=== PATIENT | male | born 1950 | race American Indian/Alaskan Native ===

== ENCOUNTER 2018-11-29 10:14 | Day surgery (SDC) | payer BC, MEDICARE ==
[~2018-11-29 10:14] MED LIST: NACL 0.9% 1000 ML 1,000 ML IV SCH
[2018-11-29 11:13] VITALS: BP 120/72
--- NOTE | 2018-11-29 15:01 | Consultation ---
History of Present Illness Consult date: 11/29/18 Consult reason: pre op evaluation History of present illness: 68y M with history of NICM, chronic AF and insitu AICD. Patient of [facility] with chronic stable routine ME follow up. Referred for cardiology pre-op for routine GI endoscopy. He has no chest pain or SOB or palpitations. No edema. On telemetry he is atrial fib with good rate control. He is on Xarelto which was held 4 days ago in prep for this procedure. Past History Past Medical History: atrial fib, heart failure, hypertension Past Surgical History: Other (ICD implant) Medications and Allergies Allergies Allergy/AdvReac Type Severity Reaction Status Date / Time No Known Allergies Allergy Verified 07/07/14 05:06 Home Medications Medication Instructions Recorded Confirmed Last Taken Type Potassium Chloride 10 meq PO QDAY #30 capsule.er 07/09/14 11/28/18 Unknown Rx Acetaminophen 500 mg PO BID 11/28/18 11/29/18 11/28/18 History Atorvastatin 80 mg PO DAILY 11/28/18 11/29/18 11/28/18 History Coenzyme Q10 1 tab PO DAILY 11/28/18 11/29/18 11/28/18 History Eplerenone 50 mg PO DAILY 11/28/18 11/29/18 11/28/18 History Fish Oil 1,000 mg PO DAILY 11/28/18 11/29/18 11/28/18 History Fluticasone Propionate 1 spray INNOSTRIL DAILY 11/28/18 11/29/18 11/28/18 History Folic Acid 1 mg PO DAILY 11/28/18 11/29/18 11/28/18 History Insulin Glargine 100 units SUB-Q DAILY 11/28/18 11/29/18 11/28/18 History Lantus Solostar 30 units SUB-Q DAILY 11/28/18 11/29/18 11/28/18 History Metoprolol 200 mg PO DAILY 11/28/18 11/29/18 11/28/18 History [place] 3 500 Softgel 1,000 mg PO DAILY 11/28/18 11/29/18 11/28/18 History Torsemide 20 mg PO DAILY 11/28/18 11/29/18 11/28/18 History Xarelto 15 mg PO DAILY 04/03/19 04/04/19 04/01/19 History Active Meds: Active Medications Sodium Chloride (Nacl 0.9% 1000 Ml) 1,000 mls @ 50 mls/hr IV DIRECT MARIANN Last Admin: 11/29/18 11:25 Dose: 50 mls/hr Documented by: Review of Systems Cardiovascular: no chest pain, no orthopnea, no palpitations, no rapid/irregular heart beat, no edema, no syncope, no lightheadedness, no shortness of breath Physical Examination Vital Signs Temp Pulse Resp BP Pulse Ox 98.3 F 99 H 13 120/72 100 11/29/18 11:11 11/29/18 11:11 11/29/18 11:11 11/29/18 11:11 11/29/18 11:11 General appearance: no acute distress HEENT: Positive: PERRL Neck: Positive: neck supple Cardiac: Positive: irregularly irregular Lungs: Positive: clear to auscultation Neuro: Positive: Grossly Intact Abdomen: Positive: Soft Male genitourinary: Positive: deferred Skin: Positive: Clear Extremities: Absent: edema EKG interpretations - Telemetry EKG Rhythm: Atrial Fibrillation Assessment and Plan - Patient Problems (1) Pre-op evaluation Current Visit: Yes Status: Acute Plan to address problem: OK for procedure, low cardiac risk.
--- NOTE | 2018-11-29 18:21 | History and Physical Report ---
History of Present Illness Date of examination: 11/29/18 Date of admission: 11/29/2018 Chief complaint: History of colon polyps. History of present illness: Patient is a 68-year-old male referred for evaluation with a colonoscopy because of personal history of colon polyps. Patient has a history of atrial fibrillation and congestive heart failure hypertension and has an automated implantable cardioverter defibrillator . Patient is on anticoagulation with Xarelto which was stopped 4 days ago in preparation for this procedure. Patient has cardiomyopathy reportedly with an ejection fraction of 25%. According to him he had a electrocardiogram previously at the [facility] and had a recent echocardiogram had done [facility]. He was felt at a time to be an appropriate candidate for colonoscopy. Patient on presentation today was also evaluated by anesthesiology who felt that patient needed cardiac clearance. He was seen by cardiology who cleared patient for colonoscopy. Patient had an otherwise uneventful hospital stay for his colonoscopy. He however appeared to become concerned about the necessity for cardiac clearance and declined colonoscopy, after he was cleared by cardiology. He stated that he will do colonoscopy at an alternate time after seeing his own personal inspectors and regulatory officers. Patient was evaluated by cardiology in the hospital here and also by anesthesiologist who initially had insisted on getting an echocardiogram report but had agreed for patient to have a colonoscopy after discussions with the inspectors and regulatory officers. Patient's hospital course otherwise was uneventful. Past History Past Medical History: atrial fib, heart failure, hypertension, other (history of cardiomyopathy with ejection fraction reportedly of 25%.) Past Surgical History: Other (ICD implant) Medications and Allergies Allergies Allergy/AdvReac Type Severity Reaction Status Date / Time No Known Allergies Allergy Verified 07/07/14 05:06 Home Medications Medication Instructions Recorded Confirmed Last Taken Type Potassium Chloride 10 meq PO QDAY #30 capsule.er 07/09/14 11/28/18 Unknown Rx Acetaminophen 500 mg PO BID 11/28/18 11/29/18 11/28/18 History Atorvastatin 80 mg PO DAILY 11/28/18 11/29/18 11/28/18 History Coenzyme Q10 1 tab PO DAILY 11/28/18 11/29/18 11/28/18 History Eplerenone 50 mg PO DAILY 11/28/18 11/29/18 11/28/18 History Fish Oil 1,000 mg PO DAILY 11/28/18 11/29/18 11/28/18 History Fluticasone Propionate 1 spray INNOSTRIL DAILY 11/28/18 11/29/18 11/28/18 History Folic Acid 1 mg PO DAILY 11/28/18 11/29/18 11/28/18 History Insulin Glargine 100 units SUB-Q DAILY 11/28/18 11/29/18 11/28/18 History Lantus Solostar 30 units SUB-Q DAILY 11/28/18 11/29/18 11/28/18 History Metoprolol 200 mg PO DAILY 11/28/18 11/29/18 11/28/18 History [place] 3 500 Softgel 1,000 mg PO DAILY 11/28/18 11/29/18 11/28/18 History Torsemide 20 mg PO DAILY 11/28/18 11/29/18 11/28/18 History Xarelto 15 mg PO DAILY 11/28/18 11/29/18 11/26/18 History Active Meds: Active Medications Sodium Chloride (Nacl 0.9% 1000 Ml) 1,000 mls @ 50 mls/hr IV DIRECT MARIANN Last Admin: 11/29/18 11:25 Dose: 50 mls/hr Documented by: Review of Systems All systems: negative Exam - Constitutional Vitals: Temp Pulse Resp BP Pulse Ox 98.3 F 99 H 13 120/72 100 11/29/18 11:20 11/29/18 11:20 11/29/18 11:20 11/29/18 11:20 11/29/18 11:20 General appearance: Present: no acute distress, well-nourished - EENT Eyes: Present: PERRL ENT: hearing intact, clear oral mucosa - Neck Neck: Present: supple, normal ROM - Respiratory Respiratory effort: normal Respiratory: bilateral: CTA - Cardiovascular Heart Sounds: Present: S1 & S2. Absent: rub, click - Extremities Extremities: pulses symmetrical, No edema Peripheral Pulses: within normal limits - Abdominal General gastrointestinal: Present: soft, non-tender, non-distended, normal bowel sounds Male genitourinary: Present: normal - Integumentary Integumentary: Present: clear, warm, dry - Musculoskeletal Musculoskeletal: gait normal, strength equal bilaterally - Psychiatric Psychiatric: appropriate mood/affect, intact judgment & insight - Neurologic Neurologic: CNII-XII intact, moves all extremities Assessment and Plan Personal history of colon polyps. History of atrial fibrillation History of cardiomyopathy History of congestive heart failure History of automated implantable cardioverter defibrillator. Plan: Patient was to have a colonoscopy however after evaluation with cardiology and after he was cleared by cardiology and also by anesthesiology he decided that he was going to defer his colonoscopy at this time until he sees his own personal inspectors and regulatory officers. Patient was advised to initiate treatment with Xarelto immediately since he was not going to have the procedure done. Patient was instructed to follow up immediately with his primary care physician and also his inspectors and regulatory officers.
== END 2018-11-29 10:15 | disposition home or self-care (01) ==
LOC: GIO 10:14
PROVIDERS: ATTEND Internal Medicine Gastroenterology
DX: Z12.11 Encounter for screening for malignant neoplasm of colon (principal); I11.0 Hypertensive heart disease with heart failure; I50.23 Acute on chronic systolic (congestive) heart failure; I25.10 Atherosclerotic heart disease of native coronary artery without angina pectoris; J44.9 Chronic obstructive pulmonary disease, unspecified; E11.9 Type 2 diabetes mellitus without complications; I42.9 Cardiomyopathy, unspecified; Z98.49 Cataract extraction status, unspecified eye; Z86.010 Personal history of colon polyps; Z53.8 Procedure and treatment not carried out for other reasons; Z79.899 Other long term (current) drug therapy; Z79.4 Long term (current) use of insulin; Z98.890 Other specified postprocedural states; Z86.73 Personal history of transient ischemic attack (TIA), and cerebral infarction without residual deficits
CPT/HCPCS: 82962; J7030

== ENCOUNTER 2019-08-22 12:40 | Emergency (ER) | payer MEDICARE, OTHER ==
[2019-08-22 14:41] VITALS: BP 140/78
[2019-08-22] MEDS ORDERED: TETANUS,DIPH,PERTUSS(ACELL) VACCINE 0.5 ML SYRINGE IM ONE (14:42)
--- NOTE | 2019-08-22 14:42 | Event Note ---
ED Screening Note ED Screening Note: pt states that he cut his nail down too low at 9:30 am on the left big toe states that he cut into the cuticle and bleeding was present states that he is on xaretlo he has it wrapped in gauze unsure of last tetanus immunization tetanus immunization
--- NOTE | 2019-08-22 14:44 | Emergency Department Report ---
- General Chief complaint: Wound/Laceration Stated complaint: LEFT TOE LAC Time Seen by Provider: 08/22/19 14:38 Source: patient Mode of arrival: Ambulatory Limitations: No Limitations - History of Present Illness Initial comments: pt states that he cut his nail down too low at 9:30 am on the left big toe. hestates that he cut into the cuticle and bleeding was present. pt states that he is on xaretlo and was concerned for bleeding. he states he has had it wrapped for approximately 3 hours. he is unsure of last tetanus immunization. - Related Data Home Medications Medication Instructions Recorded Confirmed Last Taken Acetaminophen 500 mg PO BID 11/28/18 11/29/18 11/28/18 Atorvastatin 80 mg PO DAILY 11/28/18 11/29/18 11/28/18 Coenzyme Q10 1 tab PO DAILY 11/28/18 11/29/18 11/28/18 Eplerenone 50 mg PO DAILY 11/28/18 11/29/18 11/28/18 Fish Oil 1,000 mg PO DAILY 11/28/18 11/29/18 11/28/18 Fluticasone Propionate 1 spray INNOSTRIL DAILY 11/28/18 11/29/18 11/28/18 Folic Acid 1 mg PO DAILY 11/28/18 11/29/18 11/28/18 Insulin Glargine 100 units SUB-Q DAILY 11/28/18 11/29/18 11/28/18 Lantus Solostar 30 units SUB-Q DAILY 11/28/18 11/29/18 11/28/18 Metoprolol 200 mg PO DAILY 11/28/18 11/29/18 11/28/18 [place] 3 500 Softgel 1,000 mg PO DAILY 11/28/18 11/29/18 11/28/18 Torsemide 20 mg PO DAILY 11/28/18 11/29/18 11/28/18 Xarelto 15 mg PO DAILY 11/28/18 11/29/18 11/26/18 Previous Rx's Medication Instructions Recorded Last Taken Type Potassium Chloride 10 meq PO QDAY #30 capsule.er 07/09/14 Unknown Rx Allergies Allergy/AdvReac Type Severity Reaction Status Date / Time No Known Allergies Allergy Verified 07/07/14 05:06 Abscess Boil HPI - HPI Chief Complaint: Wound/Laceration Stated Complaint: LEFT TOE LAC Time Seen by Provider: 08/22/19 14:38 Home Medications: Home Medications Medication Instructions Recorded Confirmed Last Taken Acetaminophen 500 mg PO BID 11/28/18 11/29/18 11/28/18 Atorvastatin 80 mg PO DAILY 11/28/18 11/29/18 11/28/18 Coenzyme Q10 1 tab PO DAILY 11/28/18 11/29/18 11/28/18 Eplerenone 50 mg PO DAILY 11/28/18 11/29/18 11/28/18 Fish Oil 1,000 mg PO DAILY 11/28/18 11/29/18 11/28/18 Fluticasone Propionate 1 spray INNOSTRIL DAILY 11/28/18 11/29/18 11/28/18 Folic Acid 1 mg PO DAILY 11/28/18 11/29/18 11/28/18 Insulin Glargine 100 units SUB-Q DAILY 11/28/18 11/29/18 11/28/18 Lantus Solostar 30 units SUB-Q DAILY 11/28/18 11/29/18 11/28/18 Metoprolol 200 mg PO DAILY 11/28/18 11/29/18 11/28/18 [place] 3 500 Softgel 1,000 mg PO DAILY 11/28/18 11/29/18 11/28/18 Torsemide 20 mg PO DAILY 11/28/18 11/29/18 11/28/18 Xarelto 15 mg PO DAILY 11/28/18 11/29/18 11/26/18 Previous Rx's Medication Instructions Recorded Last Taken Type Potassium Chloride 10 meq PO QDAY #30 capsule.er 07/09/14 Unknown Rx Allergies/Adverse Reactions: Allergies Allergy/AdvReac Type Severity Reaction Status Date / Time No Known Allergies Allergy Verified 07/07/14 05:06 ED Review of Systems ROS: Stated complaint: LEFT TOE LAC Other details as noted in HPI Comment: All other systems reviewed and negative ED Past Medical Hx - Past Medical History Previous Medical History?: Yes Hx Hypertension: Yes Hx Heart Attack/AMI: Yes Hx Congestive Heart Failure: Yes Hx Diabetes: Yes Hx COPD: Yes - Surgical History Past Surgical History?: Yes Hx Internal Defibrillator: Yes - Social History Smoking Status: Never Smoker Substance Use Type: None - Medications Home Medications: Home Medications Medication Instructions Recorded Confirmed Last Taken Type Potassium Chloride 10 meq PO QDAY #30 capsule.er 07/09/14 11/28/18 Unknown Rx Acetaminophen 500 mg PO BID 11/28/18 11/29/18 11/28/18 History Atorvastatin 80 mg PO DAILY 11/28/18 11/29/18 11/28/18 History Coenzyme Q10 1 tab PO DAILY 11/28/18 11/29/18 11/28/18 History Eplerenone 50 mg PO DAILY 11/28/18 11/29/18 11/28/18 History Fish Oil 1,000 mg PO DAILY 11/28/18 11/29/18 11/28/18 History Fluticasone Propionate 1 spray INNOSTRIL DAILY 11/28/18 11/29/18 11/28/18 History Folic Acid 1 mg PO DAILY 11/28/18 11/29/18 11/28/18 History Insulin Glargine 100 units SUB-Q DAILY 11/28/18 11/29/18 11/28/18 History Lantus Solostar 30 units SUB-Q DAILY 11/28/18 11/29/18 11/28/18 History Metoprolol 200 mg PO DAILY 11/28/18 11/29/18 11/28/18 History [place] 3 500 Softgel 1,000 mg PO DAILY 11/28/18 11/29/18 11/28/18 History Torsemide 20 mg PO DAILY 11/28/18 11/29/18 11/28/18 History Xarelto 15 mg PO DAILY 11/28/18 11/29/18 11/26/18 History ED Physical Exam - General Limitations: No Limitations General appearance: alert, in no apparent distress - Head Head exam: Present: atraumatic, normocephalic - Eye Eye exam: Present: normal appearance - ENT ENT exam: Present: mucous membranes moist - Neurological Exam Neurological exam: Present: alert, oriented X3 - Psychiatric Psychiatric exam: Present: normal affect, normal mood - Skin Skin exam: Present: warm, dry, other (v-shaped cut present in the left big toe nail, there is no active bleeding, small dried blood present to the skin, no signs of infection, clean, dry, intact) ED Course Vital Signs 08/22/19 14:38 Temperature 97.8 F Pulse Rate 63 Respiratory 18 Rate Blood Pressure 140/78 O2 Sat by Pulse 99 Oximetry ED Medical Decision Making - Medical Decision Making pt states that he cut his nail down too low at 9:30 am on the left big toe. hestates that he cut into the cuticle and bleeding was present. pt states that he is on xaretlo and was concerned for bleeding. he states he has had it wrapped for approximately 3 hours. he is unsure of last tetanus immunization. VSS. on exam: v-shaped cut present in the left big toe nail, there is no active bleeding, small dried blood present to the skin, no signs of infection, clean, dry, intact. Area irrigated with saline and thoroughly scrubbed with Betadine and sterile dressing applied. Patient given tetanus immunization. advised pt to please keep area clean, dry, covered. may wash with soap and water and immediately dry. no hot tub, pool, or soaking in water. follow up with a primary care doctor in the next 2-3 days for reexamination. return to the emergency room for any new or worsening symptoms. Critical care attestation.: If time is entered above; I have spent that time in minutes in the direct care of this critically ill patient, excluding procedure time. ED Disposition Clinical Impression: Nail avulsion of toe Qualifiers: Encounter type: initial encounter Qualified Code(s): S91.209A - Unspecified open wound of unspecified toe(s) with damage to nail, initial encounter Disposition: - TO HOME OR SELFCARE Is pt being admited?: No Does the pt Need Aspirin: No Condition: Stable Instructions: Toenail/Fingernail Removal (ED), Diphtheria Tetanus and Pertussis Vaccination (ED) Additional Instructions: please keep area clean, dry, covered. may wash with soap and water and immediately dry. no hot tub, pool, or soaking in water. follow up with a primary care doctor in the next 2-3 days for reexamination. return to the emergency room for any new or worsening symptoms. Referrals: [facility] [Primary Care Provider] - 2-3 Days Time of Disposition: 15:05 Print Language: STATELESS
== END 2019-08-22 15:18 | disposition home or self-care (01) ==
LOC: ED 12:40
DX: S91.209A Unspecified open wound of unspecified toe(s) with damage to nail, initial encounter (principal); I10 Essential (primary) hypertension; I21.9 Acute myocardial infarction, unspecified; I50.9 Heart failure, unspecified; E11.9 Type 2 diabetes mellitus without complications; J44.1 Chronic obstructive pulmonary disease with (acute) exacerbation; Z98.890 Other specified postprocedural states; Z79.899 Other long term (current) drug therapy; W45.8XXA Other foreign body or object entering through skin, initial encounter; Y93.89 Activity, other specified; Y92.89 Other specified places as the place of occurrence of the external cause; Y99.8 Other external cause status
CPT/HCPCS: 90471; 90715; 99282